=== PATIENT | female | born 1945 | race Hispanic/Latino ===

== ENCOUNTER → 2018-09-16 | Outpatient (CLI) | payer MEDICARE ==
[~2018-09-16] MED LIST: FUROSEMIDE INJ 10 MG/ML 4 ML VIAL ONE; REGADENOSON 0.4 MG/5 ML SYR IV ONE
== END ==
LOC: NM 12:50
PROVIDERS: ATTEND Internal Medicine Cardiovascular Disease
DX: R07.9 Chest pain, unspecified (principal)
CPT/HCPCS: 78452; 93017; A9502; J2785